=== PATIENT | male | born 1975 | race Two or more races ===

== ENCOUNTER 2016-11-27 22:01 | Emergency (ER) | payer SELFPAY ==
[~2016-11-27] VITALS: Ht 167.6 cm; Wt 83.6 kg
[2016-11-27] MEDS ORDERED: KETOROLAC 30 MG/1 ML ONE (22:48)
[2016-11-27] MEDS ORDERED: KETOROLAC 30 MG/1 ML IM ONE (23:00)
[2016-11-27 23:09] LABS: PATH.CAST-FLAG NOT PRESENT; SPERM-FLAG NOT PRESENT; SRC-FLAG NOT PRESENT; XTAL-FLAG NOT PRESENT; YLC-FLAG NOT PRESENT
[2016-11-27 23:30] LABS: BLOOD UREA NITROGEN 18 mg/dL (7-18)
[2016-11-27 23:34] LABS: ASPARTATE AMINO TRANSFERASE 21 U/L (15-37)
[2016-11-27 23:47] VITALS: BP 118/77
== END 2016-11-27 23:49 | disposition home or self-care (01) ==
LOC: ED 23:43
DX: N20.0 Calculus of kidney (principal); N20.1 Calculus of ureter; N13.2 Hydronephrosis with renal and ureteral calculous obstruction
CPT/HCPCS: 36415; 74176; 80053; 81001; 85025; 96372; 99285; J1885